=== PATIENT | female | born 1950 | race African-American/Black ===

== ENCOUNTER 2018-03-02 21:18 | Emergency (ER) | payer OTHER ==
[~2018-03-02] VITALS: Ht 170.2 cm; Wt 95.3 kg
--- NOTE | ~2018-03-02 | EKG ---
[place] [address] [address] [place] [address] ELECTROCARDIOGRAM REPORT Name: TALON MADRIGAL Room #: HERMANN Murray#: [id number] Admission: 03/02/18 Attend Phys: Discharge: 03/02/18 Date of : 46 Report #: [id number] THIS REPORT FOR: //name// [facility] ED Test Date: 2018-03-02 Test Time: 21:30:41 Pat Name: TALON MADRIGAL Department: Room: Gender: F Technical Services Specialist: hanna : 1950 Requested By: Ruchi Ascencio Order Number: [id number] MD: Fabian Park Measurements Intervals [place] Rate: 60 P: 46 GA: 192 QRS: -46 QRSD: 104 T: 14 QT: 449 QTc: 449 Interpretive Statements Sinus rhythm Leftward axis Borderline T wave abnormalities No previous ECG available for comparison Electronically Signed On 03-04-2018 15:25:53 CDT by Fabian Park [email or web address] <ELECTRONICALLY SIGNED> By: Fabian Park MD, [facility] 03/04/18 1525 2130 Fabian Park MD, FACC /EPI
[2018-03-02] MEDS ORDERED: LIPITOR 20 MG T20 M1 PO (21:27)
[2018-03-02] MEDS ORDERED: HYDROCHLOROTHIA25 M2 PO (21:27)
[2018-03-02] MEDS ORDERED: OXYBUTYNIN 5 MG5 M2 PO (21:27)
[2018-03-02] MEDS ORDERED: TOPROL XL100 MG PO (21:28)
[2018-03-02] MEDS ORDERED: SULINDAC 200MG200 M1 PO (21:28)
[2018-03-02 21:51] LABS: ABSOLUTE NEUTROPHILS 4.2 thou/uL (1.4-8.2); BASOPHILS 0.7 % (0.0-2.0); EOSINOPHILS 2.9 % (0.0-3.0); HEMATOCRIT 42.7 % (37.0-47.0); HEMOGLOBIN 14.2 gm/dL (12.0-15.0); LYMPHOCYTES 29.6 % (24.0-44.0); MCH 27.5 pg (26.0-34.0); MCHC 33.4 g/dL (28.0-37.0); MCV 82.4 fL (80.0-100.0); MONOCYTES 6.4 % (1.0-8.0); PLATELET COUNT 183 thou/uL (150-400); POLYS 60.4 % (36.0-66.0); RBC 5.18 mil/uL (4.20-5.00); RDW 13.3 % (10.5-14.5)
[2018-03-02 21:58] LABS: ANION GAP 10 mmol/L (7-16); BUN 26 mg/dL (7-18); CALCIUM 9.7 mg/dL (8.5-10.1); CHLORIDE 101 mmol/L (98-107); CO2 28 mmol/L (21-32); CREATININE 1.2 mg/dL (0.6-1.0); GLUCOSE 124 mg/dL (74-106); POTASSIUM 4.2 mmol/L (3.5-5.1); SODIUM 139 mmol/L (136-145)
[2018-03-02 22:07] LABS: TROPONIN-I <0.06 ng/mL (<0.06)
[2018-03-02 23:02] VITALS: BP 117/63
== END 2018-03-02 23:03 | disposition home or self-care (01) ==
LOC: ER 21:18
PROVIDERS: Emergency Medicine
DX: R55 Syncope and collapse (principal)